=== PATIENT | male | born 1995 | race Two or more races ===

== ENCOUNTER 2019-06-13 12:09 | Emergency (ER) | payer SELFPAY ==
--- NOTE | 2019-06-13 13:12 | EDM.PDOC ---
ED HPI GENERAL MEDICAL PROBLEM - General Chief Complaint: Lower Extremity Injury/Pain Stated Complaint: TOES ARE PURPLE Time Seen by Provider: 06/13/19 12:59 Source of Information: Reports: Patient - History of Present Illness INITIAL COMMENTS - FREE TEXT/NARRATIVE: redness, swelling base of nail R 2nd toe. This started a few days ago, no active drainage, no particular injury. Treatments LIVING ADVISOR: Reports: Other (see below) Right Toe-Hailux Pain Score (Numeric/FACES): 8 - Related Data Allergies Allergy/AdvReac Type Severity Reaction Status Date / Time No Known Allergies Allergy Verified 06/13/19 12:28 Home Meds: Home Meds Cephalexin [Keflex] 500 mg PO Q6HR #30 capsule 06/13/19 [Rx] Past Medical History Dermatologic History: Reports: Other (See Below) Other Dermatologic History: fungus to toes Social & Family History - Tobacco Use Smoking Status *Q: Never Smoker - Caffeine Use Caffeine Use: Reports: Coffee, Soda, Tea - Recreational Drug Use Recreational Drug Use: No Review of Systems - Review of Systems Review Of Systems: See Below Mouth/Throat: Reports: No Symptoms Respiratory: Denies: Shortness of Breath Cardiovascular: Denies: Chest Pain GI/Abdominal: Reports: No Symptoms Skin: Reports: Erythema (area of erythema, pain , swelling base of nail R 2nd toe, foot otherwise nl) Neurological: Reports: No Symptoms ED EXAM, GENERAL - Physical Exam Exam: See Below General Appearance: Alert, No Apparent Distress Head: Atraumatic Neck: Supple Respiratory/Chest: No Respiratory Distress Extremities: Redness (base of nail R 2nd toe, no drainage, tender, swollen, nothing to drain at time of exam) Neurological: Alert, Oriented, No Motor/Sensory Deficits Course - Vital Signs Last Recorded V/S: Last Vital Signs Temp 97.4 F 06/13/19 12:24 Pulse 62 06/13/19 12:24 Resp 20 06/13/19 12:24 BP 149/94 H 06/13/19 12:24 Pulse Ox 98 06/13/19 12:24 Departure - Departure Time of Disposition: 13:07 Disposition: Home, Self-Care 01 Condition: Fair Clinical Impression: Acute paronychia of toe of right foot - Discharge Information Prescriptions: Cephalexin [Keflex] 500 mg PO Q6HR #30 capsule Instructions: Paronychia, [id number] Referrals: PCP,None [Primary Care Provider] - Forms: ED Department Discharge Additional Instructions: soak toe and foot in warm soapy water 3 to 4 times daily as best you can, cephalexin antibiotic 500 mg 4 times daily for 1 week or until gone. If a visible pus pocked forms you can open than with a sharp blade or needle to get that to drain. Follow up clinic as needed if infection not resolving within 5 to 10 days as expected.
== END 2019-06-13 13:24 | disposition home or self-care (01) ==
LOC: JD.ED 12:09
DX: L03.031 Cellulitis of right toe (principal)
CPT/HCPCS: 99283